=== PATIENT | female | born 1980 | race Caucasian/White ===

== ENCOUNTER 2017-05-12 16:47 | Emergency (ER) | payer SELFPAY ==
[2017-05-12 16:51] VITALS: BP 143/97; BMI 31.8
--- NOTE | 2017-05-12 18:50 | DR.HEADACH ---
HPI - Time Seen Time seen: 18:50 - Primary Care Physician Primary Care Physician: TORREY DAO - HPI Comment HPI Comment: PATIENT HAVE N/V AND PHOTOPHOBIA. MIGRAINE MOST OF HER LIFE. HEADACHE MORE FREQUENT RECENTLY. PENDING NEURO CONSULT. - Complaint/Symptoms Chief Complaint Doctors Comments: MICRAINE HEADACHE TIMES Chief Complaint:: PT. C/O HEADACHE WHICH BEGAN ON FRIDAY. PT. WENT TO [facility] FRIDAY FOR SAME C/O. HEADACHE IMPROVED AND CAME BACK YESTERDAY. PT'S NEUROLOGIST IS DR. ADLER AND SHE IS SCHEDULED ON FOR AN MRI ON 05/19/17. Pertinent History: Headache - Reviewed Nurses Notes Reviewed: Yes - Source History Provided: Patient - Mode of Arrival Mode of Arrival: Ambulatory - Timing Onset of Chief Complaint: 05/11/17 - Duration Since Onset: Constant Duration: Hours - Location Headache Location: Generalized - Quality Quality: Throbbing - Severity Headache Severity: Moderate - Context Headache Onset Circumstances: Spontaneous History of: None - Modifying Factors Improves With: Nothing - Associated Signs and Symptoms Associated Symptoms: Nausea Aura: Visual PMH - PMH Past Medical History: Yes Past Medical History: Headaches Past Surgical History: Yes Surgical History: Appendectomy, Hysterectomy - Family History History of Family Medical Conditions: No - Social History Does patient currently use any type of tobacco product: Yes Have you used tobacco products in the last 12 months: Yes Type of Tobacco Use: Cigarettes Does any household member use tobacco: No Alcohol Use: None Do you use any recreational Drugs:: No Lives With: Family Lives Where: Home - infectious screening In the last 2 months have you had wt loss of >10#?: NO Have you had fever, night sweats or hemotysis?: No Have you traveled outside the country in the last 6 months?: No Isolation: Standard ROS - Review of Systems Constitutional: No Symptoms Reported Eyes: Other (PHOTOPHOBIA) ENTM: No Symptoms Reported Respiratoy: No Symptoms Reported Cardiovascular: No Symptoms Reported Gastrointestinal/Abdominal: No Symptoms Reported Genitourinary: No Symptoms Reported Neurological: Headache Musculoskeletal: No Symptoms Reported Integumentary: No Symptoms Reported Hematologic/Lymphatic: No Symptoms Reported Endocrine: No Symptoms Reported All Other Systems: Reviewed and Negative PE - Vital Signs Vitals: Temperature 98.1 F Pulse Rate 104 Respiratory Rate 17 Blood Pressure 143/97 O2 Sat by Pulse Oximetry 96 - General Limitations: No Limitations General Appearance: Alert - Head Head Exam: Normal Inspection - Eyes Eye exam: Normal Appearance Eyelids: Normal Inspection: Bilateral Pupils: Regular, Round: Bilateral, Reactive: Bilateral Sclera/Conjunctival: Normal Inspection: Bilateral - ENT ENT Exam: Normal Exam External Ear Exam: Normal External Inspection TM/Canal Exam: Bilateral Normal Nose Exam: Normal Nose Exam Mouth Exam: Normal Inspection Teeth Exam: Normal Inspection Throat Exam: Normal Inspection - Neck Neck Exam: Trachea Midline - Chest Chest Inspection: Symmetric Chest Wall Rise - Respiratory Respiratory Exam: Normal Lung Sounds Bilat Respiratory Exam: Bilateral Clear to Auscultation - Cardiovascular Cardiovascular Exam: Regular Rate, Normal Rhythm, Normal Heart Sounds - Abdominal Exam Abdominal Exam: Normal Bowel Sounds, Soft. negative: Tenderness - Extremities Extremities Exam: Normal Inspection - Back Back Exam: Normal Inspection - Neurologic Neurological Exam: Alert, Oriented X3 - Psychiatric Psychiatric Exam: Anxious - Skin Skin Exam: Normal Color MDM - Additional Information Obtained Additional Information Obtained From: Family - Differential Diagnosis Differential Diagnosis: Considerations may include:: Migraine, Sinusitis Course - Treatment Treatment: SEE ORDERS. - Education/Counseling Education/Counseling: Patient, Education Educated On: Treatment, Diagnosis, Needs for Follow Up - Diagnosis Discharge Problem: Migraine Qualifiers: Migraine type: with aura Status migrainosus presence: without status migrainosus Intractability: intractable Qualified Code(s): G43.119 - Migraine with aura, intractable, without status migrainosus - Discharge Plan Disposition: HOME, SELF-CARE Condition: Stable Prescriptions: [id number] [Fioricet Tab] 1 tab PO Q8H PRN #30 tab PRN Reason: Migraine Headache Ketorolac Tromethamine [Toradol Tab] 10 mg PO Q8H PRN #12 tab PRN Reason: Pain Promethazine HCl [PHENERGAN TAB 25 MG *] 25 mg PO Q8H PRN #12 tab PRN Reason: Nausea/Vomiting - Follow ups/Referrals Follow ups/Referrals: [facility],None [Primary Care Provider] - 3 days - Instructions Instructions: Migraine Headache Additional Instructions: RETURN TO ED IF WORSE.
[2017-05-12] MEDS ORDERED: TORADOL 60 MG VIAL IM ONE (18:51)
[2017-05-12] MEDS ORDERED: PHENERGAN INJ 25 MG IM ONE (18:51)
[2017-05-12] MEDS ORDERED: TORADOL 60 MG VIAL ONE (19:07)
[2017-05-12] MEDS ORDERED: PHENERGAN INJ 25 MG ONE (19:08)
== END 2017-05-12 19:48 | disposition home or self-care (01) ==
LOC: ER 17:01
DX: G43.119 Migraine with aura, intractable, without status migrainosus (principal)
CPT/HCPCS: 96372; 99282; J1885; J2550